=== PATIENT | female | born 1985 | race African-American/Black ===

== ENCOUNTER 2017-08-22 01:57 | Emergency (ER) | payer MEDICAID ==
[~2017-08-22] VITALS: Ht 177.8 cm; Wt 84.0 kg
[~2017-08-22 01:57] MED LIST: ADVAIR; ALBUTEROL; SEIZURE MEDICATION; [UNRECOGNIZED DRUG - OTHER]
[2017-08-22] MEDS ORDERED: SODIUM CHLORIDE 0.9% 1,000 ML IV ONE (06:17)
[2017-08-22 06:52] LABS: BASOPHILS % 0.2 % (0.0-2.0); EOSINOPHILS % 2.2 % (0.0-5.0); HEMATOCRIT. 28.7 % (36.0-48.0); HEMOGLOBIN. 9.3 g/dL (12.0-16.0); LYMPHOCYTES % 26.3 % (20.0-50.0); MEAN CORPUSCULAR HEMOGLOBIN 26.8 pg (28.0-32.0); MEAN CORPUSCULAR VOLUME 82.6 fL (81.0-99.0); MEAN PLATELET VOLUME 6.6 fl (7.4-10.4); MONOCYTES % 10.8 % (2.0-8.0); NEUTROPHILS % 60.5 % (40.0-76.0); PLATELET 307 x1000/uL (130-400); RED BLOOD CELL COUNT 3.47 mill/uL (4.2-5.4); RED CELL DISTRIBUTION WIDTH 13.9 % (11.6-14.6)
[2017-08-22 06:53] LABS: CLARITY URINE CLEAR (CLEAR); COLOR URINE YELLOW (YELLOW); KETONES URINE 2+ (NEGATIVE); LEUKOCYTE ESTERASE URINE 2+ (NEGATIVE); NITRITE URINE NEGATIVE (NEGATIVE); OCCULT BLOOD URINE NEGATIVE (NEGATIVE); PROTEIN URINE NEGATIVE (NEGATIVE); SPECIFIC GRAVITY URINE 1.016 (1.005-1.030)
[2017-08-22 06:58] LABS: CHLORIDE 107 mEq/L (98-107)
[2017-08-22 07:23] LABS: B-HCG QUANTITATIVE 3193 mIU/mL (<3)
[2017-08-22 08:08] LABS: *AMPHETAMINES SCREEN URINE NEGATIVE (NEGATIVE); *BARBITURATES SCREEN URINE NEGATIVE (NEGATIVE); *BENZODIAZEPINES SCREEN URINE NEGATIVE (NEGATIVE); CANNABINOID URINE SCREEN NEGATIVE (NEGATIVE); METHADONE URINE SCREEN NEGATIVE (NEGATIVE); OPIATES URINE SCREEN NEGATIVE (NEGATIVE); PHENCYCLIDINE URINE SCREEN NEGATIVE (NEGATIVE)
[2017-08-22 08:09] LABS: *COCAINE SCREEN URINE PRESUMTIVE POSITIVE (NEGATIVE)
[2017-08-22] MEDS ORDERED: CEFTRIAXONE 1 G PREMIX 50 ML IV ONE (10:30)
[2017-08-22 14:00] VITALS: BP 122/74
[2017-09-01 06:14] LABS: COCAINE CONFIRMATION URINE Positive (.)
== END 2017-08-22 14:26 | disposition home or self-care (01) ==
LOC: ER 01:57 → UNDOADMOB 11:58 → L&D 11:58 → ER 14:26
DX: O23.42 Unspecified infection of urinary tract in pregnancy, second trimester (principal); F14.10 Cocaine abuse, uncomplicated; O26.892 Other specified pregnancy related conditions, second trimester; R10.9 Unspecified abdominal pain; F32.9 Major depressive disorder, single episode, unspecified; Z3A.26 26 weeks gestation of pregnancy; Z88.0 Allergy status to penicillin; Z91.010 Allergy to peanuts; J45.909 Unspecified asthma, uncomplicated; G40.909 Epilepsy, unspecified, not intractable, without status epilepticus; F17.200 Nicotine dependence, unspecified, uncomplicated; O99.322 Drug use complicating pregnancy, second trimester; O99.332 Smoking (tobacco) complicating pregnancy, second trimester
CPT/HCPCS: 36415; 76805; 80053; 80305; 80353; 81003; 81025; 83690; 84702; 85025; 85610; 86850; 86900; 86901; 96361; 96365; 99285; J0696; J7030; X7700; J7120

== ENCOUNTER 2018-07-22 21:19 | Emergency (ER) | payer MEDICAID ==
[~2018-07-22] VITALS: Ht 160 cm; Wt 59.0 kg
[2018-07-22 21:27] VITALS: BP 130/60
== END 2018-07-23 01:05 | disposition left against medical advice (07) ==
LOC: ER 21:49
DX: Z53.21 Procedure and treatment not carried out due to patient leaving prior to being seen by health care provider (principal)

== ENCOUNTER 2018-10-02 11:45 | Emergency (ER) | payer MEDICAID ==
[~2018-10-02] VITALS: Ht 162.6 cm; Wt 64.0 kg
[2018-10-02] MEDS ORDERED: MORPHINE SULFATE 4 MG/ML CPJ (NOT FOR IM USE) IV STA (12:32)
[2018-10-02] MEDS ORDERED: ONDANSETRON HCL 4MG/2ML INJ IV STA (12:32)
[2018-10-02] MEDS ORDERED: SODIUM CHLORIDE 0.9% 1,000 ML IV ONE (12:32)
[2018-10-02 13:06] LABS: BASOPHILS % 1.4 % (0.0-2.0); EOSINOPHILS % 5.2 % (0.0-5.0); HEMATOCRIT. 33.1 % (36.0-48.0); HEMOGLOBIN. 10.5 g/dL (12.0-16.0); LYMPHOCYTES % 33.3 % (20.0-50.0); MEAN CORPUSCULAR HEMOGLOBIN 23.7 pg (28.0-32.0); MEAN CORPUSCULAR VOLUME 74.4 fL (81.0-99.0); MONOCYTES % 12.2 % (2.0-8.0); NEUTROPHILS % 47.9 % (40.0-76.0); PLATELET 330 x1000/uL (130-400); RED BLOOD CELL COUNT 4.44 mill/uL (4.2-5.4); RED CELL DISTRIBUTION WIDTH 16.7 % (11.6-14.6)
[2018-10-02 13:11] LABS: CHLORIDE 109 mEq/L (98-107)
[2018-10-02 13:13] LABS: PROTHROMBIN TIME 10.3 sec (9.6-11.0)
[2018-10-02 13:16] LABS: HCG SCREEN NEGATIVE
[2018-10-02 14:15] LABS: CLARITY URINE CLEAR (CLEAR); COLOR URINE YELLOW (YELLOW); KETONES URINE NEGATIVE (NEGATIVE); LEUKOCYTE ESTERASE URINE NEGATIVE (NEGATIVE); NITRITE URINE NEGATIVE (NEGATIVE); OCCULT BLOOD URINE NEGATIVE (NEGATIVE); PROTEIN URINE NEGATIVE (NEGATIVE); SPECIFIC GRAVITY URINE 1.014 (1.005-1.030); UROBILINOGEN URINE 0.2 E.U./dL (0.2-1.0)
[2018-10-02] MEDS ORDERED: IOHEXOL-300 100 ML BOTTLE ONE (15:38)
[2018-10-02] MEDS ORDERED: SULFAMETHOXAZOLE/TRIMETHOPRIM 400/80MG TAB PO ONE (16:45)
[2018-10-02] MEDS ORDERED: CEPHALEXIN 250MG CAPSULE PO ONE (16:45)
[2018-10-03 13:55] VITALS: BP 132/77
== END 2018-10-03 14:12 | disposition home or self-care (01) ==
LOC: ER 11:45
DX: M25.571 Pain in right ankle and joints of right foot (principal); S91.001A Unspecified open wound, right ankle, initial encounter; X58.XXXA Exposure to other specified factors, initial encounter; Y93.9 Activity, unspecified; Y92.9 Unspecified place or not applicable; J45.909 Unspecified asthma, uncomplicated; F32.9 Major depressive disorder, single episode, unspecified; R56.9 Unspecified convulsions; Z88.0 Allergy status to penicillin; Z91.010 Allergy to peanuts; Z98.890 Other specified postprocedural states
CPT/HCPCS: 36415; 73700; 80053; 81003; 81025; 84703; 85025; 85610; 96374; 96375; 99284; J2270; J2405; J7030; Q9967